=== PATIENT | male | born 1995 | race African-American/Black ===

== ENCOUNTER 2024-07-12 09:43 | Emergency (ER) | payer BC, SELFPAY ==
[2024-07-12 10:01] VITALS: BP 168/110
--- NOTE | 2024-07-12 10:50 | ED.GENMED ---
History of Present Illness
General
Chief Complaint: Medication Reaction
Source: patient
Exam Limitations: none
Time Seen by Provider: 07/12/24 10:37
History of Present Illness
History of Present Illness:
29-year-old male otherwise healthy presents with palpitations racing heart inability to sleep for the past 3 days. He believes this may be an adverse reaction to Benadryl. He was taking 1 Benadryl a day over the course of 5 days. His last
dorsalis was 4 days ago. He denies chest pain however today when he stood up he felt like his heart was racing and he was lightheaded. His watch got his heart rate at a rate of 130. There has been no vomiting. no other complaints at this time
Past History
Past History
ED Past Medical History: None; Negative Asthma, HTN, Hypercholesterolemia or NIDDM
ED Past Surgical History: None
Social History
Tobacco: Non-smoker
Alcohol: None
Personal: Single
Living: with family
Employment: Employed
Phy Exam
Physical Exam
Physical Exam:
General: Well-appearing male no acute respiratory distress
HEENT: Normocephalic mucosa moist pupils equal round reactive to light
Skin with normal color and turgor
Heart: Regular rate and rhythm no murmurs
Lungs: Clear no wheeze
Extremities: No cyanosis
Course
Orders/Labs/Results
Orders:
Orders
07/12/24 10:04
Electrocardiogram (*1) Urgent
Reason for Study: Vertigo / Dizzy
EKG- Treatment ONCE
07/12/24 10:49
Cardiac Monitoring- Treatment ONCE
07/12/24 10:50
EKG- Treatment ONCE
07/12/24 10:58
Complete Blood Count/With Diff Urgent
Comprehensive Metabolic Panel Urgent
TSH Reflex To Free T4 Urgent
07/12/24 11:50
0.9% Sodium Chloride 1000 ml [Nss] 1,000 ml IV BOLUS
Abnormal Lab Results
07/12/24
10:58
MPV 10.5 H fL
(7.4-10.4)
Absolute Lymphs (auto) 0.8 L 10^3/uL
(1.2-3.4)
Neutrophils % 81.2 H %
(42.2-75.2)
Lymphocytes % 11.0 L %
(20.5-51.1)
Creatinine 1.4 H mg/dL
(0.7-1.3)
07/12/24 10:58
07/12/24 10:58
Vital Signs
Initial and Last Documented VS:
Initial Vital Signs
Temp Pulse Resp BP Pulse Ox
98.3 F 77 18 168/110 98
07/12/24 10:01 07/12/24 10:01 07/12/24 10:01 07/12/24 10:01 07/12/24 10:01
Last Documented Vital Signs
Temp Pulse Resp BP Pulse Ox
98.3 F 77 18 168/110 98
07/12/24 10:01 07/12/24 10:01 07/12/24 10:01 07/12/24 10:01 07/12/24 10:01
MDM/Problems Addressed
Differential Diagnosis Includes:
Palpitations insomnia sensation of uneasiness. Patient has had about potential reaction to Benadryl. On exam I do not see any obvious signs of anticholinergic effects. Will check labs including electrolytes thyroid study EKG and placed on monitor.
*Critical Care Note
Total Time (30-74mins, 75-104mins- exclusive of procedures): Not Applicable
Update Note
Update Note:
Patient reevaluated vital signs are stable. Creatinine slightly elevated at 1.4. I suspect underlying volume depletion with what he describes as elevated heart rate when standing. There is been no tachycardia here. He looks well upon
reassessment. Will hydrate and we will plan on discharging
ED Attending Note
-
Portions of this chart may have been created with voice recognition software.� Occasional wrong word or��sound alike� substitutions may have occurred due to the inherent limitations of voice recognition software.
Discharge Plan
Departure
Patient Disposition: Home (Routine Discharge)
Date of Disposition: 07/12/24
Time of Disposition: 12:34
Patient with high blood pressure during this ER visit?: No
Discharge Problem:
Acute dehydration
Prescriptions:
No Action
No Current Medications
0
Referrals:
Yg Navarrete DO [Family Provider] -
Activity Restrictions/Additional Instructions:
Stay hydrated. Rest. Return if worse otherwise follow-up next week with your family doctor for recheck of your blood work
Interventions
Interventions:
*Risk Screen - Suicide Last Done: 07/12/24 10:01
*General Assessment Last Done: 07/12/24 10:01
*ED COVID-19 Vaccine History Last Done: 07/12/24 10:01
Discharge Date and Time
Print Language: LITHUANIAN
[2024-07-12 11:17] LABS: % Basophils 0.4 % (0-2); % Eosinophils 0.6 % (0-6); % Immature Granulocytes 0.3 % (0-0.5); % Monocytes 6.5 % (1.7-9.3); % Neutrophils 81.2 % (42.2-75.2); Absolute Lymphocytes 0.8 10^3/uL (1.2-3.4); Absolute Monocytes 0.5 10^3/uL (0.1-0.6); Absolute Neutrophils 5.9 10^3/uL (1.4-6.5); Hematocrit 44.4 % (39.0-52.0); Hemoglobin 15.3 g/dL (13.0-18.0); Mean Corp Hgb Conc. 34.5 g/dL (33.0-37.0); Mean Corpuscular Hgb 29.7 pg (27.0-31.0); Mean Platelet Volume 10.5 fL (7.4-10.4); Nucleated Red Blood Cells % 0 % (-); Platelet Count 240 10^3/uL (130-400); Red Blood Cell Count 5.16 10^6/uL (4.70-6.10); White Blood Cell Count 7.2 10^3/uL (4.8-10.8)
[2024-07-12 11:33] LABS: ALT (SGPT) 23 U/L (0-50); AST (SGOT) 28 U/L (17-59); Albumin 4.7 g/dl (3.5-5.0); Alkaline Phosphatase 74 U/L (38-126); Blood Urea Nitrogen 19 mg/dl (9-20); Calcium 9.3 mg/dl (8.4-10.2); Carbon Dioxide 26 mmol/L (22-30); Chloride 100 mmol/L (98-107); Glucose 99 mg/dl (70-99); Potassium 3.7 mmol/L (3.5-5.1); Sodium 136 mmol/L (135-145); Total Bilirubin 0.7 mg/dl (0.2-1.3); Total Protein 7.6 g/dl (6.3-8.2); eGFR > 60.00
[2024-07-12 12:02] LABS: TSH Reflex To Free T4 1.53 uIU/ml (0.47-4.68)
[2024-07-12] MEDS: NSS 1000 IV (12:02)
[2024-07-12 12:03] VITALS: BP 140/82
[2024-07-12 13:39] VITALS: BP 146/79
== END 2024-07-12 13:40 | disposition home or self-care (01) ==
LOC: EMR 09:43
PROVIDERS: Physician Assistant; EMERGENCY PHYSICIAN Emergency Medicine; FAMILY PHYSICIAN Family Medicine
DX: E86.0 Dehydration (principal)
CPT/HCPCS: 99283; 96360; 80053; 84443; 85025; 93005